=== PATIENT | male | born 1985 | race Caucasian/White ===

== ENCOUNTER 2017-03-11 07:43 | Observation (INO) | payer OTHER ==
[~2017-03-11] VITALS: Ht 188 cm; Wt 138.0 kg
[2017-03-11 08:09] LABS: BASO % 0.3 % (0.2-1.2); EOS # 0.3 10_X3_uL (0.0-0.5); EOS % 3.5 % (0.8-7.0); GRAN # 5.7 10_X3_uL (1.8-5.4); HEMOGLOBIN 14.9 g/dL (13.7-17.5); LYMPH # 2.2 10_X3_uL (1.3-3.6); LYMPH % 24.1 % (21.8-53.1); MEAN CORPUSCULAR HEMOGLOBIN 29.9 pg (27.0-33.0); MEAN CORPUSCULAR HGB CONC 34.7 g/dL (32.0-36.0); MEAN CORPUSCULAR VOLUME 86.2 fL (79-92); MEAN PLATELET VOLUME 9.9 fl (7.5-11.5); MONO # 0.8 10_X3_uL (0.3-0.8); MONO % 9.1 % (5.3-12.2); PLATELET COUNT 257 x10_3/uL (163-337); RED BLOOD COUNT 4.99 x10_6/uL (4.6-6.1); RED CELL DISTRIBUTION WIDTH 12.5 % (11.6-14.4); WHITE BLOOD COUNT 9.1 x10_3/uL (4.2-9.1)
[2017-03-11 08:18] LABS: BLOOD UREA NITROGEN 16 mg/dL (7-18); CALCIUM 8.9 mg/dL (8.7-10.7); CARBON DIOXIDE 26 mmol/L (21-32); CREATININE 0.9 mg/dL (0.6-1.3); GLUCOSE,RANDOM 106 mg/dL (70-99); POTASSIUM 3.8 mmol/L (3.5-5.1); SODIUM 140 mmol/L (136-145)
[2017-03-11 08:30] LABS: THYROID STIMULATING HORMONE 2.53 uIU/mL (0.34-4.82)
[2017-03-11 08:35] LABS: TROP-I < 0.30 NG/ML (0.00-0.30)
[2017-03-11 10:05] LABS: PARTIAL THROMBOPLASTIN TIME 25.3 SECONDS (21.3-29.3); PROTHROMBIN TIME (PATIENT) 10.3 SECONDS (9.9-11.1)
[2017-03-11 14:34] LABS: CKMB 1.7 ng/ml (0.0-5.0)
[2017-03-11 14:36] LABS: TROP-I < 0.30 NG/ML (0.00-0.30)
--- NOTE | 2017-03-11 17:54 | NUR ---
1538-DR. MANZANO IN TO SEE/TALK WITH PT. EXPLAINED TO PT CHANGES NOTED IN EKG. PT AGREED TO BE TRANSFERED TO [facility] FOR FURTHER EVALUATION. [facility] CALLED AND TALKED WITH LUIS, BED COORDINATOR. 1541-DR. MANZANO TALKED WITH DR. MELTON. DR. MELTON ACCEPTED PT TO SERVICES. 1555-LUIS FROM [facility] CALLED WITH BED CONFIRMATION. PT IS TO GO TO ROOM [id number]. REPORT GIVEN TO JULES AT THIS ITME.
== END 2017-03-11 18:16 | disposition short-term general hospital (02) ==
LOC: ER 07:43 → MS 08:49
PROVIDERS: General Practice; ADMIT Family Medicine
DX: R07.9 Chest pain, unspecified (principal); F41.9 Anxiety disorder, unspecified; R11.0 Nausea; E78.00 Pure hypercholesterolemia, unspecified; Z79.899 Other long term (current) drug therapy
CPT/HCPCS: 36415; 71010; 80048; 82550; 82553; 84443; 85025; 85610; 85730; 93005; 96372; 99070; 99285-25; G0378